=== PATIENT | female | born 1930 | race Caucasian/White ===

== ENCOUNTER 2017-02-19 14:39 | Observation (INO) | payer MEDICARE, BC ==
--- NOTE | 2017-02-19 15:00 | ERNOTE ---
Abdominal HPI - Narrative Date of Service: 02/19/17 - General Chief Complaint: Abdominal Pain Time Seen by Provider: 02/19/17 14:41 Source: patient, family Exam Limitations: no limitations - Immun/Allergies/Home Medications Immunizatons: IMMUNIZATION HX Immunizations Up to Date Yes History of Influenza Vaccine Yes Allergies/Adverse Reactions: Allergies codeine Allergy (Verified 02/19/17 14:47) Shortness of Breath "Feels like she is having a heart attack." AURE Inhibitors Adverse Reaction (Verified 02/19/17 14:47) Home Medications: HOME MEDICATIONS Cyanocobalamin (Vitamin B-12) [Vitamin B-12] 1,000 mcg PO DAILY 04/24/13 [Last Taken 04/23/13 09:00] Lansoprazole [Prevacid] 30 mg PO DAILY 04/24/13 [Last Taken 04/24/13 13:58] Simvastatin 10 mg PO HS 04/24/13 [Last Taken 04/23/13 21:00] Acetaminophen [Tylenol] 650 mg PO Q4H PRN #0 tablet 04/26/13 [Last Taken Unknown ] Amiodarone HCl 100 mg PO DAILY 05/18/13 [Last Taken Unknown] Furosemide [Lasix] 40 mg PO DAILY 01/08/14 [Last Taken Unknown] Losartan Potassium [Cozaar] 50 mg PO DAILY 01/08/14 [Last Taken Unknown] Warfarin Sodium [Coumadin] 2 mg PO SUMOTHSA 06/25/14 [Last Taken Unknown] Cholecalciferol (Vitamin D3) [Vitamin D3] 2,000 unit PO DAILY 11/04/14 [Last Taken Unknown] Warfarin Sodium [Coumadin] 3 mg PO WESA 11/21/15 [Last Taken Unknown] Potassium Chloride [K-Dur] 40 meq PO BID 02/19/17 [Last Taken Unknown] - History of Present Illness Narrative: Patient states that beginning evening she began with intermittent left flank pain radiating down into the left abdomen. Denies any trauma or other symptoms. Timing: intermittent Quality: moderate, aching, sharpness Activities at Onset: none Modifying Factors - (Improves): Present: analgesics Modifying Factors - (Worsens): Present: movement Associated Symptoms: Present: denies symptoms Prior Abdominal Problems: Present: none Review of Systems - Narrative Narrative: States her symptoms are fairly new although she did have some mild discomfort earlier in the week. Denies any fever, nausea, or dysuria. States she is not constipated. - Review of Systems Respiratory: Present: no symptoms reported Cardiology: Present: no symptoms reported Gastrointestinal/Abdominal: Present: other - Left lower quadrant discomfort extending up into the left flank. Again intermittent sharpness. At this very moment states discomfort is very mild. Genitourinary: Present: no symptoms reported Musculoskeletal: Present: other - Has some discomfort in the left flank with rotation to the right Skin: Present: other - Bruising throughout Neurological: Present: no symptoms reported Endocrine: Present: no symptoms reported Hematologic/Lymphatic: Present: easy bruising - on warfarin - Patient's Past Medical History Patient History - Medical: Arthritis, GERD Patient History - Cardiac/Respiratory: Atrial Fibrillation, Hypertension, Hyperlipidemia Patient History - Surgical Procedures: Hysterectomy, Other Patient History - Other: None - Social History Psych History: No pertinent hx Smoking Status: Never smoker Alcohol Use: none Drug Use: none - Immunizations Immunizations Up to Date: Yes History of Influenza Vaccine: Yes Physical Exam - Physical Exam Narrative: Does not appear in severe distress. General Appearance: Present: wd/wn, alert Head Exam: Present: normal inspection Neck: Present: normal inspection, nontender, full range of motion Respiratory: Present: normal breath sounds, no accessory muscle use, chest nontender, lungs clear Cardiovascular/Chest: Present: regular rate, rhythm, normal peripheral pulses, systolic murmur Peripheral Pulses: N=norm/S=strong/W=weak/B=bound/A=absent: Radial (R): Normal, Radial (L): Normal Gastrointestinal/Abdominal: Present: normal bowel sounds, soft, other - Left flank tender just below last rib. 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 - Vital Signs Patient's Vital Signs:: I have reviewed the patient's vital signs. Vital Signs: Vital Signs 02/19/17 14:49 Temperature 37.2 C Pulse Rate 70 Respiratory 16 Rate Blood Pressure 178/76 O2 Sat by Pulse 94 Oximetry - CT/Ultrasound CT/Ultrasound Narrative: Pancreatic mass with aortic retroperitoneal adenopathy. Findings per radiologist. - Progress/Reassessment Chief Complaint: Abdominal Pain Progress:: Improved Progress Note-Subjective: 02/19/17 16:[address] Sepulveda who wishes CT abdomen pelvis w/ contrast. 02/19/17 19:33 Patient states the ultram was helpful with her pain. - Transfer of Care Expected Disposition: Admit Plan - Plan Plan: consulted Dr. Sepulveda who will place patient on observation for continued care. Departure Clinical Impression: Abdominal pain in female patient, Pancreatic abnormality - Departure Disposition: [facility] Condition: Stable
[2017-02-19 15:31] LABS: Prothrombin Time (Patient) 19.8 Seconds (9.0-11.0)
[2017-02-19 15:32] LABS: INR 1.97 INR (0.90-1.10)
[2017-02-19 15:41] LABS: Hematocrit 33.2 % (37.0-47.0); Hemoglobin 10.6 gm/dL (12.5-16.0); Mean Cell Volume 88.8 fl (78-100); Mean Corpuscular Hemoglobin 28.3 pg (27-31); Mean Corpuscular Hgb Conc 31.9 g/dl (32-36); Mean Platelet Volume 11.8 fl (6.0-9.5); Neutrophil # 5.2 K/mm3 (1.3-6.0); Neutrophil % 74.4 % (42-75.0); Platelet Count 261 K/mm3 (150-450); Red Blood Count 3.74 M/mm3 (4.2-5.4)
[2017-02-19 15:49] LABS: Albumin * 3.1 gm/dl (3.4-5.0); Anion Gap 12.6 mmol/L (6.8-13.8); BUN/Creatinine Ratio 17.1 (9.0-21.6); Bilirubin, Total 0.8 mg/dL (0.0-1.1); Ca. Corrected For Albumin 9.2 mg/dL (8.4-10.2); Calcium * 8.8 mg/dL (7.9-10.9); Carbon Dioxide 29.7 mmol/L (24-32.6); Potassium 4.3 mmol/L (3.4-4.6); Total Protein 6.9 gm/dL (6.2-8.2)
[2017-02-19] MEDS ORDERED: NORMAL SALINE 1,000 ML IV PRN (16:27)
[2017-02-19] MEDS ORDERED: DIATRIZOATE MEGLUMINE, SODIUM 30 ML BTL ONE (17:01)
[2017-02-19] MEDS ORDERED: DIATRIZOATE MEGLUMINE, SODIUM 30 ML BTL PO ONE (17:04)
[2017-02-19 17:11] LABS: Urine Appearance Cloudy; Urine Bilirubin Negative (NEGATIVE); Urine Blood 25 /ul (NEGATIVE); Urine Color Yellow; Urine Ketone Negative (NEGATIVE); Urine Nitrite Negative (NEGATIVE); Urine Protein Negative (NEGATIVE); Urine Urobilinogen Normal (NORMAL); Urine WBC 25-50 /hpf (0-5)
[2017-02-19 17:12] LABS: Urine Bacteria 3+; Urine RBC 0-5 /hpf (0-5)
[2017-02-19] MEDS ORDERED: ONDANSETRON HCL/PF 2 MG/ML VIAL IV ONE (17:28)
[2017-02-19] MEDS ORDERED: ONDANSETRON HCL/PF 2 MG/ML VIAL ONE (17:30)
[2017-02-19] MEDS ORDERED: traMADol HCL 50 MG TABLET PO ONE (17:34)
[2017-02-19] MEDS ORDERED: traMADol HCL 50 MG TABLET ONE (17:36)
--- NOTE | 2017-02-19 20:40 | HP ---
Chief Complaint - Chief Complaint Date of Service: 02/19/17 Time of Service: 20:20 Chief Complaint: " Abdominal Pain". Source of HPI- Pt;reliable. History of Present Illness: is a 86-yr-old WF pt of Dr. Arianna Vasquez with a PMH of: Anxiety , Anemia, A-fib, CHF, HTN, HLD, Osteoathritis. Pt states that she has been dealing with pain on the Left Lumbar region which begun 1 month ago. Then for the last two days, the pain seemed to be getting worse. She took Tylenol but that did not help. Her cousin convinced her to seek medical care today and therefore came to the ED. She denies the associated symptoms of N/V & Weight loss. At the ED, laboratory studies showed elevated Lipase of 1860 and CRP of 6.8. All other lab values on CBC & CMP were unremarkable. CT of the Abdomen revealed: masslike irregularity of the pancreas worrisome for a possible malignancy and retroperitoneal adenopathy which could be metastatic disease from the pancreatic lesion & there was extensive diverticulosis without evidence of diverticulitis. She will be admitted under observation for supportive cares. She may require to be transferred for further diagnostic work- up at a higher level of Acute Care. - Patient's Past Medical History Patient History - Medical: Anemia, Arthritis, GERD, Osteoarthritis Patient History - Cardiac/Respiratory: Atrial Fibrillation, Hypertension, Hyperlipidemia Patient History - Surgical Procedures: Hysterectomy, Other Patient History - Other: None - Family History Mother Family History - Medical: Family History - Cardiac/Respiratory: COPD Family History - Cancer: Pancreatic Father Family History - Medical: - Social History Psych History: No pertinent hx Smoking Status: Never smoker Alcohol Use: none Drug Use: none - Immunizations Immunizations Up to Date: Yes History of Influenza Vaccine: Yes Review Of Systems (GEN) - Review of Systems Generalized/Overall Review: Absent: Weakness, Chills, Fever, Malaise, Weight loss EENTM: Absent: Eye Pain Respiratory: Absent: Cough, Shortness of Breath Cardiac: Absent: Chest Pain, Edema, Palpitations Abdominal: Present: Abdominal Pain. Absent: Nausea, Vomiting, Hematemesis, Constipation, Diarrhea Genitourinary: Absent: Burning, Itching, Urgency, Frequency Musculoskeletal: Absent: Joint Pain, Back Pain, Joint Swelling Neurological: Present: Anxiety. Absent: Headache, Tremors, Weakness Skin: Absent: Dryness, Lesions, Lumps Endocrine: Absent: Intolerance to Cold Misc: All systems neg except as marked Immunizations: IMMUNIZATION HX Immunizations Up to Date Yes History of Influenza Vaccine Yes Allergies/Adverse Reactions: Allergies Allergy/AdvReac Type Severity Reaction Status Date / Time codeine Allergy Shortness Verified 02/19/17 14:47 of Breath AURE Inhibitors AdvReac Verified 02/19/17 14:47 morphine AdvReac Verified 02/19/17 23:48 Home Medications: HOME MEDICATIONS Cyanocobalamin (Vitamin B-12) [Vitamin B-12] 1,000 mcg PO DAILY 04/24/13 [Last Taken 02/19/17 09:00] Lansoprazole [Prevacid] 30 mg PO DAILY 04/24/13 [Last Taken 02/19/17 09:00] Simvastatin 10 mg PO HS 04/24/13 [Last Taken 02/18/17 21:00] Acetaminophen [Tylenol] 650 mg PO Q4H PRN #0 tablet 04/26/13 [Last Taken 09:00] Furosemide [Lasix] 40 mg PO DAILY 01/08/14 [Last Taken 02/19/17 09:00] Losartan Potassium [Cozaar] 50 mg PO DAILY 01/08/14 [Last Taken 02/19/17 09:00] Cholecalciferol (Vitamin D3) [Vitamin D3] 2,000 unit PO DAILY 11/04/14 [Last Taken 02/19/17 09:00] Warfarin Sodium [Coumadin] 3 mg PO WESA 11/21/15 [Last Taken 02/19/17 09:00] Amiodarone HCl [Cordarone] 100 mg PO DAILY 02/19/17 [Last Taken 02/19/17 09:00] Potassium Chloride [Klor-Con M10] 20 meq PO BID 02/19/17 [Last Taken 02/19/17 09 :00] Warfarin Sodium 2 mg PO SUMOTUTHFR 02/19/17 [Last Taken 02/18/17 09:00] Exam - Exam Vital Signs: Vital Signs - Last Taken Temp 37.2 C 02/19/17 19:12 Pulse 70 02/19/17 20:07 Resp 16 02/19/17 20:07 BP 191/72 02/19/17 20:07 Pulse Ox 95 02/19/17 20:07 Constitutional: Present: Alert, Oriented x3, Cooperative, No distress, Elderly ENT Exam: Present: normal ENT inspection, hearing grossly normal, dry mucous membranes Eye Exam: bilateral eye: normal inspection, PERRL Neck: Present: non-tender, full range of motion, supple Back Exam: Present: normal inspection, no CVA tenderness Breasts: Present: Exam deferred Respiratory: Present: lungs clear, No rales, No wheezing Cardiovascular/Chest: Present: normal peripheral pulses, regular rate, rhythm, no chest tenderness, no murmur Abdomen: Present: Normal bowel sounds, soft, nontender /Rectal: Present: Exam deferred Extremity: Present: non-tender, normal inspection, no pedal edema Skin Exam: Present: warm/dry, no cyanosis Lymphatic: Present: no adenopathy Neurologic: Present: no motor/sensory deficits, alert, normal mood/affect, oriented x 3 Appearance: Present: appropriate appearance, appropriate insight Eye contact: Present: cooperative, good eye contact, normal speech Thoughts: Present: normal thought pattern, no apparent hallucination Diagnostic Studies: Laboratory Results WBC 7.0 K/mm3 (4.0-10.5) 02/19/17 15:25 RBC 3.74 M/mm3 (4.2-5.4) L 02/19/17 15:25 Hgb 10.6 gm/dL (12.5-16.0) L 02/19/17 15:25 Hct 33.2 % (37.0-47.0) L 02/19/17 15:25 MCV 88.8 fl (78-100) 02/19/17 15:25 MCH 28.3 pg (27-31) 02/19/17 15:25 MCHC 31.9 g/dl (32-36) L 02/19/17 15:25 RDW 13.0 % (11.5-14.0) 02/19/17 15:25 Plt Count 261 K/mm3 (150-450) 02/19/17 15:25 MPV 11.8 fl (6.0-9.5) H 02/19/17 15:25 Immature Gran % (Auto) 0.10 % (0.001-0.429) 02/19/17 15:25 Immature Gran # (Auto) 0.01 K/mm3 (0.000-0.0310) 02/19/17 15:25 Neutrophils % 74.4 % (42-75.0) 02/19/17 15:25 Lymphocytes % 11.6 % (20-51) L 02/19/17 15:25 Monocytes % 12.0 % (0.0-9) H 02/19/17 15:25 Eosinophils % 1.0 % (0.0-3.0) 02/19/17 15:25 Basophils % 0.9 % (0.0-1.0) 02/19/17 15:25 Nucleated RBC % 0.0 k/mm3 (0-1) 02/19/17 15:25 Neutrophils # 5.2 K/mm3 (1.3-6.0) 02/19/17 15:25 Lymphocytes # 0.8 k/mm3 (1.5-3.5) L 02/19/17 15:25 Monocytes # 0.8 k/mm3 (0.0-1.0) 02/19/17 15:25 Eosinophils # 0.1 k/mm3 (0.0-0.7) 02/19/17 15:25 Absolute Basophils 0.1 k/mm3 (0.0-0.1) 02/19/17 15:25 PT 19.8 Seconds (9.0-11.0) H 02/19/17 15:16 INR (Anticoag Therapy) 1.97 INR (0.90-1.10) H 02/19/17 15:16 Sodium 142 mmol/L (132-142) 02/19/17 15:25 Plasma Sodium 143 mmol/L (130-142) H 02/19/17 15:25 Potassium 4.3 mmol/L (3.4-4.6) 02/19/17 15:25 Chloride 104 mmol/L (97-106) 02/19/17 15:25 Carbon Dioxide 29.7 mmol/L (24-32.6) 02/19/17 15:25 Anion Gap 12.6 mmol/L (6.8-13.8) 02/19/17 15:25 BUN 18 mg/dL (3-23) 02/19/17 15:25 Creatinine 1.05 mg/dL (0.4-1.4) 02/19/17 15:25 Est GFR (Non-Af Amer) 53 mL/min (60-130) L 02/19/17 15:25 BUN/Creatinine Ratio 17.1 (9.0-21.6) 02/19/17 15:25 Random Glucose 137 mg/dL (70-110) H 02/19/17 15:25 Calcium 8.8 mg/dL (7.9-10.9) 02/19/17 15:25 Calcium Adj for Albumin 9.2 mg/dL (8.4-10.2) 02/19/17 15:25 Total Bilirubin 0.8 mg/dL (0.0-1.1) 02/19/17 15:25 AST 18 U/L (0-48) 02/19/17 15:25 ALT 12 U/L (19-67) L 02/19/17 15:25 Alkaline Phosphatase 76 U/L (50-170) 02/19/17 15:25 C-Reactive Prot, Quant 6.8 mg/dL (0.0-0.9) H 02/19/17 15:16 Total Protein 6.9 gm/dL (6.2-8.2) 02/19/17 15:25 Albumin 3.1 gm/dl (3.4-5.0) L 02/19/17 15:25 Amylase 99 U/L (25-115) 02/19/17 15:25 Lipase 1860 U/L (73-393) H 02/19/17 15:16 Urine Color Yellow 02/19/17 16:47 Urine Appearance Cloudy 02/19/17 16:47 Urine pH 6.0 pH (5.0-7.0) 02/19/17 16:47 Ur Specific [place] 1.020 SP.GR. (1.005-1.010) 02/19/17 16:47 Urine Protein Negative mg/dL (NEGATIVE) 02/19/17 16:47 Urine Glucose (UA) Negative mg/dL (NEGATIVE) 02/19/17 16:47 Urine Ketones Negative mg/dL (NEGATIVE) 02/19/17 16:47 Urine Blood 25 /ul (NEGATIVE) H 02/19/17 16:47 Urine Nitrate Negative (NEGATIVE) 02/19/17 16:47 Urine Bilirubin Negative mg/dl (NEGATIVE) 02/19/17 16:47 Urine Urobilinogen Normal EU/dl (NORMAL) 02/19/17 16:47 Ur Leukocyte Esterase Negative /ul (NEGATIVE) 02/19/17 16:47 Urine RBC 0-5 /hpf (0-5) 02/19/17 16:47 Urine WBC 25-50 /hpf (0-5) H 02/19/17 16:47 Ur Epithelial Cells 0-5 /hpf (0-5) 02/19/17 16:47 Urine Bacteria 3+ (NONE) H 02/19/17 16:47 Urine Culture Comments Culture to follow 02/19/17 16:47 Assessment/Plan - Assessment/Plan (1) Pancreatic mass Assessment: Pt presented with ongoing abdominal pain on the Left Lumbar region x 1 month. Labs- Lipase of 1860. CT Abdomen findings: masslike irregularity of the pancreas worrisome for a possible malignancy and retroperitoneal adenopathy which could be metastatic disease from the pancreatic lesion & extensive diverticulosis without evidence of diverticulitis. Will need further endoscopic imaging techniques: endoscopic ultrasound guided fine needle aspiration for biobsy which may not be accomplished here. She also requires multidisciplinary consultation with: medical & radiation oncology, pathology, interventional endoscopy & surgery at a higher level of acute care. Will provide supportive care in the meantime with: pain mgt, keep NPO & IVF hydration and make arrangement for transfer tomorrow after discussion with pt and family. Problem: Acute (2) HTN (hypertension) Assessment: B/P elevated tonight at 182/60. Will increase Coozar bid. Problem: Chronic (3) Atrial fibrillation Assessment: Stable- Place on telemetry, continue Amiodarone and Coumadin. Problem: Chronic (4) Congestive heart failure Assessment: Stable- On Lasix. Problem: Inactive (5) Anemia Problem: Chronic
[2017-02-19] MEDS ORDERED: ONDANSETRON HCL/PF 2 MG/ML VIAL IV PRN ×2 (22:05)
[2017-02-19] MEDS ORDERED: WARFARIN SODIUM 2 MG TABLET PO SCH (22:30)
[2017-02-19] MEDS ORDERED: LOSARTAN POTASSIUM 50 MG TABLET ONE (22:38)
--- NOTE | 2017-02-19 22:41 | PN ---
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 No H/O N,V,D, weight loss. Exam remarkable for mild CVA tenderness. Labs: H/H 10.6/33.2; CRP 6.8, lipase 1860, GFR 57, LFTs normal. CT abdomen/pelvis W/C: 1. Soft tissue masslike irregularity of the pancreatic head suspicious for malignancy. 2. Soft tissue attenuation in the periaortic retroperitoneum. This may be metastatic disease from the pancreatic mass, lymphoma or possibly sequela of aortitis. 3. Diffuse atherosclerosis present. Extensive diverticulosis. Patient will be kept NPO , started on D5NS at 125 ml/hr and admitted to Obs. labs will be checked on 02/20/17. For detailed H&P please see notes by Izzy Donohue[PROFESSOR OF POLITICAL SCIENCE, hospitalist].
[2017-02-19] MEDS: DEXTROSE 5%-NORMAL SALINE 1,000 ML IV PRN (22:46)
[2017-02-19] MEDS ORDERED: LORazepam 0.5 MG TABLET PO STA (22:53)
[2017-02-19] MEDS: LOSARTAN POTASSIUM 50 MG TABLET PO SCH (23:02)
[2017-02-20 06:00] LABS: Prothrombin Time (Patient) 22.8 Seconds (9.0-11.0)
[2017-02-20 06:08] LABS: Albumin * 2.7 gm/dl (3.4-5.0); Anion Gap 8.9 mmol/L (6.8-13.8); BUN/Creatinine Ratio 16.1 (9.0-21.6); Bilirubin, Total 0.6 mg/dL (0.0-1.1); Ca. Corrected For Albumin 8.8 mg/dL (8.4-10.2); Calcium * 8.1 mg/dL (7.9-10.9); Carbon Dioxide 29.2 mmol/L (24-32.6); Potassium 4.1 mmol/L (3.4-4.6); Total Protein 6.2 gm/dL (6.2-8.2)
[2017-02-20 06:12] LABS: INR 2.26 INR (0.90-1.10)
[2017-02-20] MEDS ORDERED: HYDROmorphone HCL 1 MG/ML DISP.SYRIN IV PRN (06:51)
[2017-02-20] MEDS ORDERED: KETOROLAC TROMETHAMINE 15 MG/ML VIAL IV PRN (06:55)
[2017-02-20] MEDS: DEXTROSE 5%-NORMAL SALINE 1,000 ML IV PRN (08:14)
[2017-02-20] MEDS: AMIODARONE HCL 200 MG TABLET PO SCH (08:15)
[2017-02-20] MEDS: CYANOCOBALAMIN 1,000 MCG TABLET PO SCH (08:15)
[2017-02-20] MEDS: CHOLECALCIFEROL 1,000 UNIT CAPSULE PO SCH (08:15)
[2017-02-20] MEDS: LOSARTAN POTASSIUM 50 MG TABLET PO SCH ×2 (08:15→20:10)
[2017-02-20] MEDS ORDERED: LOSARTAN POTASSIUM 50 MG TABLET PO SCH (09:00)
[2017-02-20] MEDS ORDERED: WARFARIN SODIUM 2 MG TABLET PO SCH (17:00)
--- NOTE | 2017-02-20 17:29 | DS ---
(1) Pancreatic mass Problem: Acute (2) UTI (urinary tract infection), uncomplicated Problem: Acute (3) HTN (hypertension) Problem: Chronic Qualifiers: Hypertension type: unspecified Qualified Code(s): I10 - Essential (primary ) hypertension (4) Chronic a-fib Diagnosis(s): on warfarin. Problem: Chronic (5) Obesity Diagnosis(s): BMi-33.0 Problem: Chronic (6) Anemia Diagnosis(s): B12 and fe defieciency Problem: Chronic Qualifiers: Anemia type: other cause Description of Stay: DATE OF ADMISSION: 02/19/17. DATE OF DISCHARGE: 02/21/17. DIAGNOSTICS: CT ABDOMEN/PELVIS W/C 02/19/17. DISCHARGE SUMMARY: Ashley Awad is a 86-year-old WFwith a H/O HTN, HLD, chronic A. 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 Pertinent labs CRP 6.8, lipase [address] on [address] Underwent a [address] abdomen/pelvis w/c 1. Soft tissue mass like irregularity at the pancreatic head suspicious for malignancy. 2. Soft tissue attenuation in the periaortic retroperitoneum. This may be metastatic disease from the pancreatic mass, lymphoma or possibly sequelae of 5 otitis.. Bilateral renal cysts. Diffuse atherosclerosis present. Extensive diverticulosis without evidence for diverticulitis. Pain not relieved by acetaminophen which she normally takes. She had mild nausea related by ondansetron; pain relieved by tramadol. Initially patient was kept NPO, and started on a clear liquid diet with improvement in her symptoms. Her diet was advanced as tolerated. Lipase trended down to 1074 on 02/20/17. She did have a UTI which could be contributing to her LT flank pain and therefore was treated with Bactrim DS twice a day for 3 days. PT/INR was therapeutic at the time of discharge at 2.21. Discussed in detail regarding further workup. Patient would like to go to of and will most likely require an endoscopic ultrasound by GI/ surgery. Prescription for tramadol/ondansetron were called in. Due to elevated blood pressures her losartan was increased from 50 mg daily to 50 mg twice a day. Follow-up with PCP in 1-2 weeks. Greater than 30 minutes was spent in examination of patient, discussing treatment options, plan of care, reconciliation of medications, discharge planning, preparation dictation of discharge summary. Procedures Performed: none Results and Findings: Laboratory Tests 02/19/17 15:25 WBC 7.0 Hgb 10.6 L Hct 33.2 L Plt Count 261 02/19/17 02/20/17 15:25 05:45 Plasma Sodium 143 H 141 Potassium 4.3 4.1 Chloride 104 107 H Carbon Dioxide 29.7 29.2 BUN 18 15 Creatinine 1.05 0.93 Est GFR (Non-Af Amer) 53 L 61 Random Glucose 137 H 124 H Calcium Adj for Albumin 9.2 8.8 Total Bilirubin 0.8 0.6 AST 18 14 ALT 12 L 12 Alkaline Phosphatase 76 73 Total Protein 6.9 6.2 Albumin 3.1 L 2.7 L Amylase 99 02/19/17 02/20/17 15:16 05:45 C-Reactive Prot, Quant Past 6.8 H Lipase 1860 H 1074 H Microbiology 02/19/17 14:56 Urine,Clean Catch Urine Culture - Final Escherichia Coli CT ABDOMEN/PELVIS W/C: 02/19/17: Liver enhances homogenously. No ductal dilatation. Gallbladder is not definitely seen. Soft tissue irregularity at the pancreatic head which is worrisome for a possible malignancy. Focal pancreatitis cannot be excluded. Spleen is unremarkable. Adrenal glands WNL. No nephrolithiasis/obstructive uropathy. Bilateral renal cysts. There is soft tissue attenuation surrounding the aorta felt to be represent retroperitoneal lymphadenopathy. This may be metastatic disease from the pancreatic lesion. Alternatively lymphoma or possible reaction from aortitis and appears similar. There is diffuse atherosclerosis. No evidence for intestinal obstruction. There is extensive diverticulosis without evidence for diverticulitis. Bladder is under distended limiting evaluation. No free air or free fluid. No loculated fluid collections. Osseous structures demonstrate no suspicious abnormalities. IMPRESSION: 1. Soft tissue masslike irregularity at the pancreatic head suspicious for malignancy. 2. Soft tissue attenuation in the pancreatic retroperitoneum. This may be metastatic disease from the pancreatic mass, lymphoma possibly sequelae of aortitis. 3. For the remainder of findings please see above. Discharge Disposition: Home self care Disposition: Home self-care Condition: Undetermined Discharge Activity: Activity as tolerated Discharge Diet: Low salt, Low fat/chol Referrals: Arianna Vasquez MD [Primary Care Provider] - Additional Patient Instructions (free text): Please make appointment with [facility] at [facility] for endoscopic ultrasound for evaluation of pancreatic mass.[patient case coordinator]. They will call you with date and time of appointment. Appointment with Dr. Vasquez 1-2 weeks after biopsy is done. Follow up with Dr. Vasquez 03/07 at 11:00. NEW MEDS/DOSES CHANGED: losatan 50 mg twice a day. tramadol 50 mg twice a dayas needed for pain. Ondasetron 4 mg as needed for nausea. take water pills and potassium at noon. bactrim DS twice a day for 3 days. MEDS D/LEE: tylenol. losartan once a day. Prescriptions (Any new or edited meds): Losartan Potassium [Cozaar] 50 mg PO BID #60 tablet Ondansetron [Zofran Odt] 4 mg PO Q6H PRN #90 tab PRN Reason: Nausea Sulfamethoxazole/Trimethoprim [Bactrim Ds] 1 tab PO BID #6 tablet traMADol HCL [Tramadol HCl] 50 mg PO BID PRN #75 tablet PRN Reason: Moderate Pain Complete Home Medications List: Complete Home Medication List: Cyanocobalamin (Vitamin B-12) [Vitamin B-12] 1,000 mcg PO DAILY 04/24/13 Lansoprazole [Prevacid] 30 mg PO DAILY 04/24/13 Simvastatin 10 mg PO HS 04/24/13 Furosemide [Lasix] 40 mg PO DAILY 01/08/14 Cholecalciferol (Vitamin D3) [Vitamin D3] 2,000 unit PO DAILY 11/04/14 Warfarin Sodium [Coumadin] 3 mg PO WESA 11/21/15 Amiodarone HCl [Cordarone] 100 mg PO DAILY 02/19/17 Potassium Chloride [Klor-Con M10] 20 meq PO BID 02/19/17 Warfarin Sodium 2 mg PO SUMOTUTHFR 02/19/17 Losartan Potassium [Cozaar] 50 mg PO BID #60 tablet 02/20/17 Ondansetron [Zofran Odt] 4 mg PO Q6H PRN #90 tab 02/20/17 traMADol HCL [Tramadol HCl] 50 mg PO BID PRN #75 tablet 02/20/17 Sulfamethoxazole/Trimethoprim [Bactrim Ds] 1 tab PO BID #6 tablet 02/21/17
[2017-02-21 05:36] LABS: Prothrombin Time (Patient) 22.3 Seconds (9.0-11.0)
[2017-02-21 05:50] LABS: INR 2.21 INR (0.90-1.10)
[2017-02-21] MEDS ORDERED: PANTOPRAZOLE SODIUM 40 MG TABLET.EC PO SCH (07:00)
[2017-02-21] MEDS: LOSARTAN POTASSIUM 50 MG TABLET PO SCH (08:43)
[2017-02-21] MEDS: AMIODARONE HCL 200 MG TABLET PO SCH (08:43)
[2017-02-21] MEDS: CYANOCOBALAMIN 1,000 MCG TABLET PO SCH (08:43)
[2017-02-21] MEDS: CHOLECALCIFEROL 1,000 UNIT CAPSULE PO SCH (08:44)
[2017-02-21] MEDS ORDERED: FUROSEMIDE 40 MG TABLET PO SCH (09:00)
[2017-02-21] MEDS ORDERED: POTASSIUM CHLORIDE 10 MEQ TABLET.SA PO SCH (09:00)
[2017-02-21] MEDS ORDERED: POTASSIUM CHLORIDE 20 MEQ TABLET.SA PO SCH (09:00)
[2017-02-21 10:42] VITALS: BP 168/86
--- NOTE | 2017-02-21 12:40 | PN ---
Subjective - Date and Time Seen Date: 02/20/17 Time: 09:00 Subjective Narrative: Pain has improved with tramadol; less nauseated with ondansetron. Currently on a clear liquid diet which she is tolerating well. Patient would like to go to [facility] for further evaluation for pancreatic mass on CT Objective - Review of Systems Generalized/Overall Review: Denies: Weakness Cardiac: Denies: Chest Pain, Edema Abdominal: Reports: Nausea - improving. Denies: Diarrhea Genitourinary Symptoms: Denies: No Symptoms Reported Musculoskeletal Complaints: Reports: Back Pain - Vitals Vitals: vital signs 02/20/17 07:33 Temperature 36.7 C Pulse Rate 100 Respiratory 22 H Rate Blood Pressure 160/52 O2 Sat by Pulse 97 Oximetry - Abnormal Lab Findings Abnormal Lab Findings: Lab Results 02/21/17 Range/Units 05:15 PT 22.3 H (9.0-11.0) Seconds INR (Anticoag Therapy) 2.21 H (0.90-1.10) INR 02/20/17 05:45 Plasma Sodium 141 Potassium 4.1 Chloride 107 H Carbon Dioxide 29.2 BUN 15 Creatinine 0.93 Est GFR (Non-Af Amer) 61 Random Glucose 124 H Calcium Adj for Albumin 8.8 AST 14 ALT 12 L Alkaline Phosphatase 73 Total Protein 6.2 Albumin 2.7 L Lipase 1074 H - Exam Constitutional: Present: Elderly, Obese - alert and oriented x 3; anxious. ENT Exam: Present: hearing grossly normal, moist mucous membranes Respiratory: Present: lungs clear, normal breath sounds. Absent: no accessory muscle use Cardiovascular/Chest: Present: irregularly irregular. Absent: tachycardia Abdomen: Present: Normal bowel sounds, soft - mild tenderness over epigastrium and LT side of abdomen., obese. Absent: rebound tenderness Extremity: Present: normal inspection, no pedal edema Skin Exam: Present: normal color, warm/dry Eye contact: Present: cooperative, good eye contact, normal speech Assessment/Plan Plan Narrative: 1. Abd pain : LT side abdomen radiating to LT flank. CT abdomen/pelvis w/c on 02/19/2017 showed soft tissue masslike irregularity at the pancreatic head suspicious for malignancy. Soft tissue attenuation in the periaortic retroperitoneum. This may be metastatic disease from the pancreatic mass/lymphoma or possibly sequelae of of otitis. Diffuse diverticulosis present. Decrease in lipase from 1860[02/19/17] to 1074[02/20/17]. 2. Hypertension: Increase losartan from 50 mg daily to 50 mg by mouth twice a day. 3. Chronic A. fib: On warfarin. PT/INR therapeutic at 2.26. 4. Mild nausea and vomiting: Nausea did respond to Zofran/ondansetron 4 mg and pain responded to tramadol. - Problems/Diagnosis (1) Pancreatic mass Problem: Acute (2) UTI (urinary tract infection), uncomplicated Problem: Acute Narrative: culture pending - ??flank pain (3) Chronic a-fib Problem: Chronic Narrative: on warfarin (4) HTN (hypertension) Problem: Chronic Qualifiers: Hypertension type: unspecified Qualified Code(s): I10 - Essential (primary ) hypertension
[2017-02-23] MEDS ORDERED: WARFARIN SODIUM 3 MG TABLET PO SCH (17:00)
== END 2017-02-21 14:00 | disposition home or self-care (01) ==
LOC: ER 14:39 → MS 20:15
PROVIDERS: ADMIT Nurse Practitioner; ATTEND Internal Medicine
DX: K86.89 Other specified diseases of pancreas (principal); N39.0 Urinary tract infection, site not specified; B96.20 Unspecified Escherichia coli [E. coli] as the cause of diseases classified elsewhere; I48.2 Chronic atrial fibrillation; Z79.01 Long term (current) use of anticoagulants; I10 Essential (primary) hypertension; D50.9 Iron deficiency anemia, unspecified; D51.9 Vitamin B12 deficiency anemia, unspecified; E66.9 Obesity, unspecified; Z68.33 Body mass index [BMI] 33.0-33.9, adult; E78.5 Hyperlipidemia, unspecified; I50.9 Heart failure, unspecified
CPT/HCPCS: 36415; 74177; 80053; 81001; 82150; 83690; 85025; 85610; 86140; 87086; 96374; 96375; 99285; G0378; J2405